=== PATIENT | female | born 1990 | race Caucasian/White ===

== ENCOUNTER 2019-07-12 21:41 | Emergency (ER) | payer OTHER, SELFPAY ==
--- OUTSIDE RECORDS SUMMARY | 2019-07-12 21:43 | XMS REPORT ---
:1990 [facility] [address] [place] [address] Dr. Sotelo. [address] [place] [id number] Care Team Providers Name Role Phone Unavailable Unavailable Unavailable Problems This patient has no known problems. Allergies, Adverse Reactions, Alerts This patient has no known allergies or adverse reactions. Medications This patient has no known medications.
[2019-07-13 00:08] LABS: Urine Blood NEGATIVE (NEG); Urine Glucose NEGATIVE (NEG); Urine Protein TRACE (NEG); Urine Specific Gravity >1.030 (1.005-1.030); Urine pH 5.5 (5.0-7.0)
--- NOTE | 2019-07-13 00:29 | ER ---
Nurse's Notes [facility] Name: Sadaf Shaffer Age: 29 yrs Sex: Female : 1990 Arrival Date: 07/12/2019 Time: 21:44 Bed 16 Private MD: Diagnosis: Acute lymphadenitis of lower limb Presentation: 07/11 21:59 Chief complaint: Patient states: "A couple days ago I got this weird knot on my leg, aj1 and it started to spread, I've been running fever for a couple days, I'm having diarrhea also". Coronavirus screen: The patient has NOT traveled to a country currently being monitored by the [facility] within the last 14 days. Ebola Screen: Patient denies travel to an Ebola-affected area in the 21 days before illness onset. Initial Sepsis Screen: Does the patient meet any 2 criteria? HR > 90 bpm. No. Patient's initial sepsis screen is negative. Does the patient have a suspected source of infection? Yes: Skin breakdown/wound. Risk Assessment: Do you want to hurt yourself or someone else? Patient reports no desire to harm self or others. 21:59 Method Of Arrival: Ambulatory aj1 21:59 Acuity: SETH 4 aj1 Triage Assessment: 22:02 General: Appears in no apparent distress. uncomfortable, Behavior is calm, cooperative, aj1 appropriate for age. Pain: Pain currently is 5 out of 10 on a pain scale. Neuro: Level of Consciousness is awake, alert, obeys commands, Oriented to person, place, time, situation. Cardiovascular: Patient's skin is warm and dry. Respiratory: Airway is patent Respiratory effort is even, unlabored, Respiratory pattern is regular, symmetrical. 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 - Social history:: Smoking status: Patient reports the use of cigarette tobacco products, smokes one-half pack cigarettes per day. Screenin/14 00:51 Abuse screen: Denies threats or abuse. Denies injuries from another. Nutritional lw1 screening: No deficits noted. Tuberculosis screening: No symptoms or risk factors identified. Fall Risk None identified. Vital Signs: 07/11 22:02 BP 124 / 77; Pulse 108; Resp 18; Temp 100.0; Pulse Ox 100% on R/A; Weight 79.38 kg (R); aj1 Height 6 ft. 0 in. (182.88 cm) (R); 07/12 00:43 BP 111 / 73; Pulse 73; Resp 20; Temp 99.7; Pulse Ox 100% on R/A; Pain 7/10; lw1 07/11 22:02 Body Mass Index 23.73 (79.38 kg, 182.88 cm) aj1 ED Course: 07/11 21:44 Patient arrived in ED. 22:01 Triage completed. aj1 22:02 Arm band placed on Patient placed in waiting room, Patient notified of wait time. aj1 22:08 Kiesha Patel FNP-C is PHCP. kb 22:08 Alex Cerda MD is Attending Physician. kb 23:20 Den Goncalves, RN is Primary Nurse. lw1 23:45 No provider procedures requiring assistance completed. Urine collected: clean catch lw1 specimen, clear. 07/12 00:00 US Extremity Venous Unilateral Ltd In Process Unspecified. EDMS 00:52 Patient has correct armband on for positive identification. Call light in reach. Side lw1 rails up X 1. 00:52 Patient did not have IV access during this emergency room visit. lw1 Administered Medications: No medications were administered Outcome: 00:28 Discharge ordered by . kb 00:51 Discharged to home ambulatory. lw1 00:51 Condition: good 00:51 Discharge instructions given to Instructed on discharge instructions, follow up and referral plans. Demonstrated understanding of instructions, follow-up care. 00:53 Patient left the ED. lw1 Signatures: Dispatcher [employer] [facility] Kiesha Patel FNP-C FNP-Ckb Johnson, Angela RN RN aj Gregoria Rogel LaDonna, RN RN lw1
--- NOTE | 2019-07-13 00:29 | EDPHYS ---
Physician Documentation [facility] Name: Sadaf Shaffer Age: 29 yrs Sex: Female : 1990 Arrival Date: 07/12/2019 Time: 21:44 Bed 16 Private MD: ED Physician Alex Cerda HPI: 07/12 00:25 This 29 yrs old Female presents to ER via Ambulatory with complaints of kb Fever, Knot on upper leg. 00:26 the patient presents with a swollen area of the right femoral area. Description: kb swollen. Onset: The symptoms/episode began/occurred 3 day(s) ago. Possible cause(s): unknown. Associated signs and symptoms: The patient has no apparent associated signs or symptoms. Modifying factors: the symptoms are alleviated by nothing, the symptoms are aggravated by pressure. Severity of symptoms: At their worst the symptoms were moderate, in the emergency department the symptoms are unchanged. The patient has not experienced similar symptoms in the past. The patient has not recently seen a physician. Pt reports she had a tender bump in right upper thigh that started a few days ago, yesterday she noticed 2 more in her groin and today she has had fever and diarrhea. Denies abd pain. 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 - Social history:: Smoking status: Patient reports the use of cigarette tobacco products, smokes one-half pack cigarettes per day. ROS: 07/12 00:23 ENT: Negative for injury, pain, and discharge, Neck: Negative for injury, pain, and kb swelling, Cardiovascular: Negative for chest pain, palpitations, and edema, Respiratory: Negative for shortness of breath, cough, wheezing, and pleuritic chest pain, Back: Negative for injury and pain, Skin: Negative for injury, rash, and discoloration, Neuro: Negative for headache, weakness, numbness, tingling, and seizure. Constitutional: Positive for fever. MS/extremity: Positive for pain, tenderness, of the right femoral area, "knots". 00:24 Abdomen/GI: Positive for diarrhea, Negative for abdominal pain, nausea and vomiting. kb Exam: 00:23 Constitutional: This is a well developed, well nourished patient who is awake, alert, kb and in no acute distress. Head/Face: Normocephalic, atraumatic. Neck: Trachea midline, no thyromegaly or masses palpated, and no cervical lymphadenopathy. Supple, full range of motion without nuchal rigidity, or vertebral point tenderness. No Meningismus. Chest/axilla: Normal chest wall appearance and motion. Nontender with no deformity. No lesions are appreciated. Cardiovascular: Regular rate and rhythm with a normal S1 and S2. No gallops, murmurs, or rubs. Normal PMI, no JVD. No pulse deficits. Respiratory: Lungs have equal breath sounds bilaterally, clear to auscultation and percussion. No rales, rhonchi or wheezes noted. No increased work of breathing, no retractions or nasal flaring. Abdomen/GI: Soft, non-tender, with normal bowel sounds. No distension or tympany. No guarding or rebound. No evidence of tenderness throughout. Back: No spinal tenderness. No costovertebral tenderness. Full range of motion. Skin: Warm, dry with normal turgor. Normal color with no rashes, no lesions, and no evidence of cellulitis. Neuro: Awake and alert, GCS 15, oriented to person, place, time, and situation. Cranial nerves II-XII grossly intact. Motor strength 5/5 in all extremities. Sensory grossly intact. Cerebellar exam normal. Normal gait. 00:23 Musculoskeletal/extremity: Extremities: grossly normal except: noted in the right femoral area: tenderness, lymphadenopathy. Vital Signs: 07/11 22:02 BP 124 / 77; Pulse 108; Resp 18; Temp 100.0; Pulse Ox 100% on R/A; Weight 79.38 kg (R); aj1 Height 6 ft. 0 in. (182.88 cm) (R); 07/12 00:43 BP 111 / 73; Pulse 73; Resp 20; Temp 99.7; Pulse Ox 100% on R/A; Pain 7/10; lw1 07/11 22:02 Body Mass Index 23.73 (79.38 kg, 182.88 cm) aj1 MDM: 07/11 23:09 Patient medically screened. kb 07/12 00:25 Data reviewed: vital signs, nurses notes. Data interpreted: Pulse oximetry: on room air kb is 100 %. Interpretation: normal. Counseling: I had a detailed discussion with the patient and/or guardian regarding: the historical points, exam findings, and any diagnostic results supporting the discharge/admit diagnosis, lab results, radiology results, the need for outpatient follow up, a family practitioner, to return to the emergency department if symptoms worsen or persist or if there are any questions or concerns that arise at home. 07/11 23:40 Order name: Urine Dipstick--Ancillary (enter results); Complete Time: 00:11 sp 07/11 23:40 Order name: Urine --Ancillary (enter results); Complete Time: 00:11 sp 07/11 23:27 Order name: Urine Dipstick-Ancillary (obtain specimen); Complete Time: 00:01 kb 07/11 23:27 Order name: US Extremity Venous Unilateral Ltd kb Administered Medications: No medications were administered Disposition: 03:30 Co-signature as Attending Physician, Alex Cerda MD I agree with the assessment and tw4 plan of care. Disposition: 07/13/19 00:28 Discharged to Home. Impression: Acute lymphadenitis of lower limb. - Condition is Stable. - Discharge Instructions: Lymphadenopathy. - Medication Reconciliation Form, Thank You Letter, Antibiotic Education, Prescription Opioid Use form. - Follow up: Emergency Department; When: As needed; Reason: Worsening of condition. Follow up: Private Physician; When: 2 - 3 days; Reason: Recheck today's complaints, Continuance of care, Re-evaluation by your physician. Signatures: Dispatcher [employer] Kiesha Montez, CARLOTAC MOLASSES PREPARER-Deborah Apodaca, RN RN aj1 Alex Cerda MD MD tw4 Den Goncalves RN RN lw1 Corrections: (The following items were deleted from the chart) 00:25 00:23 ENT: Negative for injury, pain, and discharge, Neck: Negative for injury, pain, kb and swelling, Cardiovascular: Negative for chest pain, palpitations, and edema, Respiratory: Negative for shortness of breath, cough, wheezing, and pleuritic chest pain, Abdomen/GI: Negative for abdominal pain, nausea, vomiting, diarrhea, and constipation, Back: Negative for injury and pain, Skin: Negative for injury, rash, and discoloration, Neuro: Negative for headache, weakness, numbness, tingling, and seizure, kb 00:53 00:28 07/13/2019 00:28 Discharged to Home. Impression: Acute lymphadenitis of lower lw1 limb. Condition is Stable. Forms are Medication Reconciliation Form, Thank You Letter, Antibiotic Education, Prescription Opioid Use. Follow up: Emergency Department; When: As needed; Reason: Worsening of condition. Follow up: Private Physician; When: 2 - 3 days; Reason: Recheck today's complaints, Continuance of care, Re-evaluation by your physician. kb
[2019-07-13 01:01] VITALS: O2SAT 100
[2019-07-13 01:03] VITALS: BP 111/73; TEMP 99.7
--- NOTE | 2019-07-13 08:47 | RAD REPORT ---
EXAM DESCRIPTION: US - Extremity Venous Uni Ltd - 07/13/2019 12:00 am CLINICAL HISTORY: Pain;Swelling COMPARISON: None. TECHNIQUE: Real-time sonographic evaluation of the right lower extremity deep venous systems was per formed. FINDINGS: Normal compressibility, flow augmentation, phasic flow and spontaneous flow are identified in the right lower extremity common femoral, superficial femoral, popliteal and posterior tibial vei ns. No intraluminal filling defects seen. Prominent right inguinal lymph nodes are present. Assessment was limited but these are not grossly ab normal the characteristics. IMPRESSION: No DVT in the right lower extremity.
== END 2019-07-13 00:53 | disposition home or self-care (01) ==
LOC: ER 21:41
DX: L04.3 Acute lymphadenitis of lower limb (principal); Z88.6 Allergy status to analgesic agent; F17.210 Nicotine dependence, cigarettes, uncomplicated
CPT/HCPCS: 81003; 81025; 93971; 99283